=== PATIENT | female | born 1980 | race American Indian/Alaskan Native ===

== ENCOUNTER 2019-05-25 16:21 | Emergency (ER) | payer MEDICARE ==
--- NOTE | 2019-05-25 17:46 | Emergency Department Report ---
Abscess Boil HPI - HPI Chief Complaint: Skin/Abscess/Foreign Body Stated Complaint: LT LEG PAIN Time Seen by Provider: 05/25/19 16:58 Duration: 3 Days Location: Lower Extremity Severity: Moderate History: Yes Pain (8/10 to left), Yes Insect Bite (reports that she think it was a spider), No Fever, No Purulent Drainage, No Numbness, No Foreign Body, No Previous History HPI: This is a 30-year-old female here reports that she thinks she has been bitten by a spider. She reports that her tetanus vaccine is up-to-date. She denies any fever or chills. Denies any nausea or vomiting complaining of right spot to left upper leg Home Medications: Previous Rx's Medication Instructions Recorded Last Taken Type HYDROcodone/APAP 10-325 [[place] 1 each PO Q6HR PRN #12 tablet 08/21/13 Unknown Rx 10-325 mg TAB] Sulfamethoxazole/Trimethoprim 1 each PO Q12H #14 tablet 08/21/13 Unknown Rx [Bactrim Ds] Ciprofloxacin HCl [Ciprofloxacin 500 mg PO Q12HR #14 tab 06/03/15 Unknown Rx TAB] Ibuprofen [Motrin 800 MG tab] 800 mg PO Q8HR PRN #30 tablet 06/03/15 Unknown Rx Clindamycin [Clindamycin CAP] 300 mg PO Q8H 10 Days #30 cap 05/25/19 Unknown Rx Ibuprofen [Motrin] 800 mg PO Q8HR PRN #12 tablet 05/25/19 Unknown Rx Allergies/Adverse Reactions: Allergies Allergy/AdvReac Type Severity Reaction Status Date / Time No Known Allergies Allergy Verified 06/03/15 19:38 ED Review of Systems ROS: Stated complaint: LT LEG PAIN Other details as noted in HPI Constitutional: denies: chills, fever Eyes: denies: eye discharge ENT: denies: throat pain, congestion Respiratory: denies: cough, shortness of breath, wheezing Cardiovascular: denies: chest pain, palpitations, edema, syncope Gastrointestinal: denies: abdominal pain, nausea, vomiting Musculoskeletal: arthralgia. denies: back pain, joint swelling, myalgia Skin: rash Neurological: denies: headache, numbness, paresthesias ED Past Medical Hx - Past Medical History Previous Medical History?: Yes Additional medical history: enlarged heart. back spasms. - Surgical History Past Surgical History?: No - Family History Family history: hypertension - Social History Smoking Status: Current Every Day Smoker Substance Use Type: Alcohol, Marijuana - Medications Home Medications: Home Medications Medication Instructions Recorded Confirmed Last Taken Type HYDROcodone/APAP 10-325 [[place] 1 each PO Q6HR PRN #12 tablet 08/21/13 Unknown Rx 10-325 mg TAB] Sulfamethoxazole/Trimethoprim 1 each PO Q12H #14 tablet 08/21/13 Unknown Rx [Bactrim Ds] Ciprofloxacin HCl [Ciprofloxacin 500 mg PO Q12HR #14 tab 06/03/15 Unknown Rx TAB] Ibuprofen [Motrin 800 MG tab] 800 mg PO Q8HR PRN #30 tablet 06/03/15 Unknown Rx Clindamycin [Clindamycin CAP] 300 mg PO Q8H 10 Days #30 cap 05/25/19 Unknown Rx Ibuprofen [Motrin] 800 mg PO Q8HR PRN #12 tablet 05/25/19 Unknown Rx ED Abscess Boil Physical Exam - Exam General: Vital signs noted. No distress. Alert and acting appropriately. 30-year-old female well-nourished well-developed in no acute distress. Front/Back of Body, Lg (Color): 1 - By 3 cm erythema with minimal induration with central opening. No drainage noted. Tender to palpate and warm to touch. Minimal fluctuant Size: 3 cm Exam: Yes Tenderness (left proximal), Yes Fluctuance (minimal to left proximal leg), Yes Surrounding Cellulites/Erythema (LT proximal leg), Yes Normal Neurologic Exam (alert and oriented 3 with normal gait and no focal deficits), Yes Normal Circulation (No CCE +2 pulses bilateral. No neurovascular compromise), No Lymphangitis, No Crepitation, No Heart Murmur I & D Note - I & D Note I & D Note: Incision and drainage. Patient with small cellulitic indurated area to left proximal leg . Area cleansed with iodine and will saline and #18-gauge needle used to make a small hole to Center of cellulitic area and noted very minimal pus came out of side. Area cleansed with saline and dry gauze bandage placed a sites. Patient tolerated procedure well ED Course Vital Signs 05/25/19 16:28 Temperature 99.1 F Pulse Rate 79 Respiratory 20 Rate Blood Pressure 164/97 O2 Sat by Pulse 96 Oximetry - Reevaluation(s) Reevaluation #1: 05/25/19 18:44 Please see I&D section for details on incision and drainage. Patient stable throughout ED stay Critical care attestation.: If time is entered above; I have spent that time in minutes in the direct care of this critically ill patient, excluding procedure time. ED Medical Decision Making - Medical Decision Making This is a 38-year-old female here with cellulitis with minimal induration to left proximal leg. Incision and drainage procedure done and referred to I and D section for details. I discussed the patient diagnosis and treatment plan: We will medication and she voiced understanding. Patient discharged home in stable condition with prescription for Motrin and clindamycin. ED Disposition Clinical Impression: Cellulitis and abscess of leg, except foot, Encounter for incision and drainage procedure Disposition: TO HOME OR SELFCARE Is pt being admited?: No Does the pt Need Aspirin: No Condition: Stable Instructions: Cellulitis (ED), Incision and Drainage (ED) Additional Instructions: Please apply warm compresses to affected area 3-4 times a day to facilitate drainage Take antibiotic as prescribed Keep affected area clean and dry follow-up with primary care physician in 2-3 days If area of infection worsens, please return to the emergency room DOT Referrals: JASSON SHELDON MD [Staff Physician] - 2-3 Days [facility] [Outside] - 2-3 Days Forms: Work/School Release Form(ED)
[2019-05-26 04:21] VITALS: BP 155/95
== END 2019-05-25 19:10 | disposition home or self-care (01) ==
LOC: ED 16:21
DX: L03.112 Cellulitis of left axilla (principal); L02.416 Cutaneous abscess of left lower limb; F17.200 Nicotine dependence, unspecified, uncomplicated; F12.10 Cannabis abuse, uncomplicated; Z79.899 Other long term (current) drug therapy

== ENCOUNTER 2021-05-17 20:13 | Emergency (ER) | payer MEDICARE ==
[2021-05-17] MEDS ORDERED: LIDOCAINE-MPF (1%) 10 MG/1 ML VIAL 5 ML INFILTRATI ONE (22:09)
--- NOTE | 2021-05-17 22:16 | Emergency Department Report ---
ED General Adult HPI - General Chief complaint: Sore Throat Stated complaint: SORE THROAT PUI?: No Source: patient Mode of arrival: Ambulatory Limitations: No Limitations - History of Present Illness Initial comments: Patient is a 40-year-old -Omani female with past medical history of hypertension who presents to the ED with acute onset persistent sore throat with mild dysphagia for the last 3 days after having unprotected oral sexual intercourse. Patient states that the pain is persistent with any swallowing. Patient denies fever, chills, nausea and vomiting, cough, nasal and sinus congestion, dysuria, urine frequency and urgency, vaginal discharge, vaginal bleeding, dyspareunia, hematuria or fever and chills. MD Complaint: Sore throat; unprotected oral sexual intercourse -: Sudden, days(s) (2) Location: mouth Radiation: non-radiation Severity scale (0 -10): 5 Quality: aching, sharp Consistency: constant Improves with: none Worsens with: eating, other (Swallowing) Associated Symptoms: denies other symptoms. denies: confusion, chest pain, diaphoresis, fever/chills, headaches, loss of appetite, malaise, nausea/vomiting, rash, seizure, shortness of breath, syncope, weakness Treatments Prior to Arrival: none - Related Data Previous Rx's Medication Instructions Recorded Last Taken Type HYDROcodone/APAP 10-325 [[place] 1 each PO Q6HR PRN #12 tablet 08/21/13 Unknown Rx 10-325 mg TAB] Sulfamethoxazole/Trimethoprim 1 each PO Q12H #14 tablet 08/21/13 Unknown Rx [Bactrim Ds] Ciprofloxacin HCl [Ciprofloxacin 500 mg PO Q12HR #14 tab 06/03/15 Unknown Rx TAB] Ibuprofen [Motrin 800 MG tab] 800 mg PO Q8HR PRN #30 tablet 06/03/15 Unknown Rx Clindamycin [Clindamycin CAP] 300 mg PO Q8H 10 Days #30 cap 05/25/19 Unknown Rx Ibuprofen [Motrin] 800 mg PO Q8HR PRN #12 tablet 05/25/19 Unknown Rx Doxycycline Hyclate 100 mg PO Q12H #28 tablet. 05/17/21 Unknown Rx Ibuprofen [Motrin] 800 mg PO Q8HR PRN #24 tablet 05/17/21 Unknown Rx Lidocaine Viscous 2% 10 ml PO Q6H PRN #120 ml 05/17/21 Unknown Rx Allergies Allergy/AdvReac Type Severity Reaction Status Date / Time No Known Allergies Allergy Verified 06/03/15 19:38 ED Review of Systems ROS: Stated complaint: SORE THROAT Other details as noted in HPI Constitutional: denies: chills, fever Eyes: denies: eye pain, eye discharge, vision change ENT: throat pain (Sore throat), other (Unprotected oral sexual intercourse). denies: ear pain Respiratory: denies: cough, shortness of breath, wheezing Cardiovascular: denies: chest pain, palpitations Endocrine: no symptoms reported Gastrointestinal: denies: abdominal pain, nausea, vomiting, diarrhea Genitourinary: denies: urgency, dysuria, discharge Musculoskeletal: denies: back pain, joint swelling, arthralgia Skin: denies: rash, lesions Neurological: denies: headache, weakness, paresthesias Psychiatric: denies: anxiety, depression Hematological/Lymphatic: denies: easy bleeding, easy bruising ED Past Medical Hx - Past Medical History Previous Medical History?: No Additional medical history: enlarged heart. back spasms. - Surgical History Past Surgical History?: No - Social History Smoking Status: Current Every Day Smoker Substance Use Type: None - Medications Home Medications: Home Medications Medication Instructions Recorded Confirmed Last Taken Type HYDROcodone/APAP 10-325 [[place] 1 each PO Q6HR PRN #12 tablet 08/21/13 Unknown Rx 10-325 mg TAB] Sulfamethoxazole/Trimethoprim 1 each PO Q12H #14 tablet 08/21/13 Unknown Rx [Bactrim Ds] Ciprofloxacin HCl [Ciprofloxacin 500 mg PO Q12HR #14 tab 06/03/15 Unknown Rx TAB] Ibuprofen [Motrin 800 MG tab] 800 mg PO Q8HR PRN #30 tablet 06/03/15 Unknown Rx Clindamycin [Clindamycin CAP] 300 mg PO Q8H 10 Days #30 cap 05/25/19 Unknown Rx Ibuprofen [Motrin] 800 mg PO Q8HR PRN #12 tablet 05/25/19 Unknown Rx Doxycycline Hyclate 100 mg PO Q12H #28 tablet.dr 05/17/21 Unknown Rx Ibuprofen [Motrin] 800 mg PO Q8HR PRN #24 tablet 05/17/21 Unknown Rx Lidocaine Viscous 2% 10 ml PO Q6H PRN #120 ml 05/17/21 Unknown Rx ED Physical Exam - General Limitations: No Limitations General appearance: alert, in no apparent distress - Head Head exam: Present: atraumatic, normocephalic, normal inspection - Eye Eye exam: Present: normal appearance, PERRL, EOMI Pupils: Present: normal accommodation - ENT ENT exam: Present: normal exam, mucous membranes moist, TM's normal bilaterally, other (Mild erythematous oropharynx and tonsils; no exudates) - Neck Neck exam: Present: normal inspection, full ROM, lymphadenopathy - Respiratory Respiratory exam: Present: normal lung sounds bilaterally. Absent: respiratory distress, wheezes, rales, rhonchi, chest wall tenderness, accessory muscle use, decreased breath sounds, prolonged expiratory - Cardiovascular Cardiovascular Exam: Present: regular rate, normal rhythm, normal heart sounds. Absent: systolic murmur, diastolic murmur, rubs, gallop - GI/Abdominal GI/Abdominal exam: Present: soft, normal bowel sounds. Absent: tenderness, guarding, rebound, hyperactive bowel sounds, hypoactive bowel sounds, organomegaly - Extremities Exam Extremities exam: Present: normal inspection, full ROM, normal capillary refill - Back Exam Back exam: Present: normal inspection, full ROM. Absent: tenderness, CVA tenderness (R), CVA tenderness (L), muscle spasm, paraspinal tenderness, vertebral tenderness - Neurological Exam Neurological exam: Present: alert, oriented X3, CN II-XII intact, normal gait, reflexes normal - Psychiatric Psychiatric exam: Present: normal affect, normal mood - Skin Skin exam: Present: warm, dry, intact, normal color. Absent: rash ED Course Vital Signs 05/17/21 21:15 Temperature 98.2 F Pulse Rate 85 Respiratory 18 Rate Blood Pressure 181/91 O2 Sat by Pulse 100 Oximetry ED Medical Decision Making - Medical Decision Making This is a 40-year-old -[place]i female with past medical history of hypertension who presents to the ED with acute onset persistent sore throat with mild dysphagia for the last 3 days after having unprotected oral sexual intercourse. Patient states that the pain is persistent with any swallowing. In the ED, patient is alert and oriented x3 and isn't in any distress. Patient was treated empirically for suspected gonorrhea exposure with Rocephin 1 g intramuscular injection. Patient was there after discharge home on oral antibiotics doxycycline every 12 hours for 2 weeks and pain medications. Patient is advised return to the ED immediately if symptoms get worse, otherwise follow-up with the [facility] for further evaluation and treatment. - Differential Diagnosis Pharyngitis; gonococcal pharyngitis; chlamydial pharyngitis; STD Critical care attestation.: If time is entered above; I have spent that time in minutes in the direct care of this critically ill patient, excluding procedure time. ED Disposition Clinical Impression: Acute gonococcal pharyngitis, Possible exposure to STD Disposition: HOME / SELF CARE / HOMELESS Is pt being admited?: No Does the pt Need Aspirin: No Condition: Stable Instructions: Gonorrhea Test, Pharyngitis, [id number] Additional Instructions: Take medication with food, drink plenty fluids and follow-up with the [facility] for further evaluation especially for STD testing including HIV and syphilis. Return to the ED immediately if symptoms get worse. Observe safe sexual practices. Prescriptions: Doxycycline Hyclate 100 mg PO Q12H #28 tablet. Lidocaine Viscous 2% 10 ml PO Q6H PRN #120 ml PRN Reason: pharyngitis Ibuprofen [Motrin] 800 mg PO Q8HR PRN #24 tablet PRN Reason: Sore Throat Referrals: [facility] [Outside] - 7-10 days Time of Disposition: 22:14 Print Language: GEORGIAN
[2021-05-17 22:17] VITALS: BP 181/91
== END 2021-05-17 23:19 | disposition home or self-care (01) ==
LOC: ED 20:13
DX: A54.5 Gonococcal pharyngitis (principal); Z20.2 Contact with and (suspected) exposure to infections with a predominantly sexual mode of transmission; I51.7 Cardiomegaly; Z98.890 Other specified postprocedural states
CPT/HCPCS: 96372; 99282; J0696

== ENCOUNTER 2021-05-18 16:48 | Emergency (ER) | payer MEDICARE ==
--- NOTE | 2021-05-18 17:39 | Emergency Department Report ---
ED Psych HPI - General Chief Complaint: Psych Stated Complaint: DEPRESSION/ SUICIDAL Time Seen by Provider: 05/18/21 17:17 Source: patient Mode of arrival: Ambulatory - History of Present Illness Initial Comments: 40-year-old female, history of depression, presents to ED for mental health evaluation. Patient reports her mother 2 months ago and she has been depressed and now suicidal. Patient states she has no plan. Patient reports she has been drinking alcohol and using cocaine to self medicate. Patient reports previous history of suicide attempt when her father . MD Complaint: suicidal ideation, feels depressed -: month(s) (2) Associated Psychiatric Symptoms: depression, suicidal ideation History of same: Yes Quality: constant Improves With: none Worsens With: none Context: recent alcohol abuse, recent drug abuse, significant life stressor Associated Symptoms: denies other symptoms Treatments Prior to Arrival: none If Self Harm: admits thoughts of - Related Data Previous Rx's Medication Instructions Recorded Last Taken Type HYDROcodone/APAP 10-325 [[place] 1 each PO Q6HR PRN #12 tablet 08/21/13 Unknown Rx 10-325 mg TAB] Sulfamethoxazole/Trimethoprim 1 each PO Q12H #14 tablet 08/21/13 Unknown Rx [Bactrim Ds] Ciprofloxacin HCl [Ciprofloxacin 500 mg PO Q12HR #14 tab 06/03/15 Unknown Rx TAB] Ibuprofen [Motrin 800 MG tab] 800 mg PO Q8HR PRN #30 tablet 06/03/15 Unknown Rx Clindamycin [Clindamycin CAP] 300 mg PO Q8H 10 Days #30 cap 05/25/19 Unknown Rx Ibuprofen [Motrin] 800 mg PO Q8HR PRN #12 tablet 05/25/19 Unknown Rx Doxycycline Hyclate 100 mg PO Q12H #28 tablet.dr 05/17/21 Unknown Rx Ibuprofen [Motrin] 800 mg PO Q8HR PRN #24 tablet 05/17/21 Unknown Rx Lidocaine Viscous 2% 10 ml PO Q6H PRN #120 ml 05/17/21 Unknown Rx Allergies Allergy/AdvReac Type Severity Reaction Status Date / Time No Known Allergies Allergy Verified 06/03/15 19:38 ED Review of Systems ROS: Stated complaint: DEPRESSION/ SUICIDAL Other details as noted in HPI Comment: All other systems reviewed and negative Psychiatric: depression, suicidal thoughts. denies: auditory hallucinations, visual hallucinations, homicidal thoughts ED Past Medical Hx - Past Medical History Previous Medical History?: Yes Additional medical history: enlarged heart. back spasms. - Surgical History Past Surgical History?: No - Social History Smoking Status: Current Every Day Smoker Substance Use Type: None - Medications Home Medications: Home Medications Medication Instructions Recorded Confirmed Last Taken Type HYDROcodone/APAP 10-325 [[place] 1 each PO Q6HR PRN #12 tablet 08/21/13 Unknown Rx 10-325 mg TAB] Sulfamethoxazole/Trimethoprim 1 each PO Q12H #14 tablet 08/21/13 Unknown Rx [Bactrim Ds] Ciprofloxacin HCl [Ciprofloxacin 500 mg PO Q12HR #14 tab 06/03/15 Unknown Rx TAB] Ibuprofen [Motrin 800 MG tab] 800 mg PO Q8HR PRN #30 tablet 06/03/15 Unknown Rx Clindamycin [Clindamycin CAP] 300 mg PO Q8H 10 Days #30 cap 05/25/19 Unknown Rx Ibuprofen [Motrin] 800 mg PO Q8HR PRN #12 tablet 05/25/19 Unknown Rx Doxycycline Hyclate 100 mg PO Q12H #28 tablet.dr 05/17/21 Unknown Rx Ibuprofen [Motrin] 800 mg PO Q8HR PRN #24 tablet 05/17/21 Unknown Rx Lidocaine Viscous 2% 10 ml PO Q6H PRN #120 ml 05/17/21 Unknown Rx ED Physical Exam - General Limitations: No Limitations General appearance: alert, in no apparent distress - Head Head exam: Present: atraumatic, normocephalic - Eye Eye exam: Present: normal appearance, EOMI - ENT ENT exam: Present: mucous membranes moist - Neck Neck exam: Present: normal inspection - Respiratory Respiratory exam: Present: normal lung sounds bilaterally. Absent: respiratory distress - Cardiovascular Cardiovascular Exam: Present: regular rate, normal rhythm - GI/Abdominal GI/Abdominal exam: Absent: distended - Extremities Exam Extremities exam: Present: normal inspection - Neurological Exam Neurological exam: Present: alert, oriented X3 - Psychiatric Psychiatric exam: Present: depressed, other (Tearful) - Skin Skin exam: Present: warm, dry, intact, normal color ED Course Vital Signs 05/18/21 05/18/21 05/18/21 16:53 17:25 20:09 Temperature 98 F 98.1 F 97.6 F Pulse Rate 98 H 90 74 Respiratory 16 16 16 Rate Blood Pressure 144/68 146/88 117/80 [Left] O2 Sat by Pulse 97 98 100 Oximetry 05/18/21 05/19/21 05/19/21 20:10 07:43 08:34 Temperature 97.8 F Pulse Rate 64 Respiratory 20 Rate Blood Pressure 156/83 [Left] O2 Sat by Pulse 100 98 98 Oximetry 05/19/21 05/19/21 08:39 12:59 Temperature 98.6 F Pulse Rate 78 Respiratory 18 Rate Blood Pressure 139/87 [Left] O2 Sat by Pulse 98 99 Oximetry ED Medical Decision Making - Lab Data Result diagrams: 05/18/21 18:36 05/18/21 18:36 - Medical Decision Making Potassium slightly low at 3.4. Has been repleted with oral potassium. Still awaiting urine for urinalysis and drug screen, however patient is medically clear for mental health evaluation. Will dispo per psych. Critical care attestation.: If time is entered above; I have spent that time in minutes in the direct care of this critically ill patient, excluding procedure time. ED Disposition Clinical Impression: Depression Disposition: [address] [place] [address] Is pt being admited?: No Condition: Stable Referrals: PRIMARY CARE, [Primary Care Provider] - 3-5 Days
[2021-05-18 18:55] LABS: Basophils # (Auto) 0.1 K/mm3 (0.0-0.1); Basophils % (Auto) 1.1 % (0.0-1.8); Hematocrit 37.8 % (30.3-42.9); Hemoglobin 12.7 gm/dl (10.1-14.3); Lymphocytes # (Auto) 1.8 K/mm3 (1.2-5.4); Lymphocytes % (Auto) 34.1 % (13.4-35.0); Mean Corpuscular HGB Conc 34 % (30-34); Mean Corpuscular Volume 92 fl (79-97); Monocytes # (Auto) 0.6 K/mm3 (0.0-0.8); Monocytes % (Auto) 11.8 % (0.0-7.3); Platelet Count 249 K/mm3 (140-440); Red Blood Count 4.11 M/mm3 (3.65-5.03); Red Cell Distribution Width 14.4 % (13.2-15.2)
[2021-05-18 19:15] LABS: BUN/Creatinine Ratio 15; Blood Urea Nitrogen 15 mg/dL (7-17); Calcium 9.6 mg/dL (8.4-10.2); Hemolysis Index 1
[2021-05-18] MEDS: DOXYCYCLINE 100 MG CAP PO SCH (22:15)
[2021-05-18] MEDS ORDERED: POTASSIUM CHLORIDE ER 20 MEQ TAB PO ONE (23:03)
[2021-05-19 08:49] LABS: Bacteria,Urine 1+ /HPF (Negative); Bilirubin,Urine SM (Negative); Blood,Urine MOD (Negative); Color,Urine Yellow (Yellow); Mucus,Urine 3+ /HPF
[2021-05-19 08:53] LABS: Amphetamine Screen,Urine Negative; Benzodiazepines Screen,Urine Negative; Cannabinoid Screen,Urine Negative; Methadone Screen,Urine Negative; Opiate Screen,Urine Negative
[2021-05-19 09:05] LABS: Ictotest,Urine Negative (Negative)
[2021-05-19 09:20] LABS: Cocaine Screen,Urine Positive
[2021-05-19] MEDS: DOXYCYCLINE 100 MG CAP PO SCH (09:54)
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
[2021-05-19] MEDS ORDERED: QUEtiapine 25 MG TAB PO SCH (12:00)
[2021-05-19] MEDS ORDERED: DIVALPROEX DR 125 MG TAB PO SCH (12:00)
[2021-05-19 13:00] VITALS: BP 139/87
--- NOTE | 2021-05-19 13:57 | Emergency Department Report ---
Blank Doc - Documentation Documentation: 40-year-old female currently on 1013 Chart reviewed Vital signs normal No events overnight Compliant with p.o. meds Accepted for transfer to [place]
== END 2021-05-19 15:28 ==
LOC: EEVIPCON 16:48 → ED 16:48
DX: F32.A Depression, unspecified (principal); F17.200 Nicotine dependence, unspecified, uncomplicated
CPT/HCPCS: 36415; 80048; 80307; 80320; 81001; 84703; 85025; 87086; 99285; G0480